=== PATIENT | female | born 1970 | race Hispanic/Latino ===

== ENCOUNTER 2020-08-24 05:10 | Emergency (ER) | payer BC ==
[~2020-08-24] VITALS: Ht 157.5 cm; Wt 88.9 kg
[2020-08-24 05:46] VITALS: BP 104/44
[2020-08-24 05:51] LABS: BASOPHILS % (AUTO) 0.7 % (0.0-5.0); HEMATOCRIT 40.3 % (36-48); MEAN CORPUSCULAR HEMOGLOBIN 28.5 pg (27.0-33.0); MEAN CORPUSCULAR HGB CONC 33.7 g/dL (32.0-36.0); MEAN CORPUSCULAR VOLUME 84.5 fL (79-99); MONOCYTES % (AUTO) 6.4 % (3.0-13.0); NEUTROPHILS % (AUTO) 70.5 % (40.0-77.0); PLATELET COUNT (AUTO) 417 K/uL (130-400); RED BLOOD CELL COUNT(AUTO) 4.77 MIL/uL (4.00-5.50); RED CELL DISTRIBUTION WIDTH 14.9 % (11.0-15.5); WHITE BLOOD COUNT (AUTO) 14.8 K/uL (4.8-10.8)
[2020-08-24 06:14] LABS: B-TYPE NATRIURETIC PEPTIDE 15 pg/mL (0-100)
[2020-08-24 06:15] LABS: INR 0.98 (0.85-1.15); PROTHROMBIN TIME 10.7 SEC (9.6-11.6)
[2020-08-24 06:16] LABS: PARTIAL THROMBOPLASTIN TIME 25.1 SEC (26.3-35.5)
[2020-08-24 06:19] LABS: APPEARANCE,URINE Clear (CLEAR); BILIRUBIN,URINE Negative (NEGATIVE); COLOR,URINE Yellow (YELLOW); GLUCOSE, URINE (UA) Negative (NEGATIVE); KETONES,URINE Trace mg/dL (NEGATIVE); LEUKOCYTE ESTERASE ,URINE Negative (NEGATIVE); NITRATE,URINE Negative (NEGATIVE); OCCULT BLOOD,URINE Trace (NEGATIVE); PROTEIN,URINE Negative (NEGATIVE)
[2020-08-24 06:22] LABS: HCG,QUAL RESULT NEGATIVE (NEGATIVE)
[2020-08-24 06:26] LABS: BACTERIA,URINE Few /HPF (None Seen); RBC,URINE 0-1 /HPF (0-1)
[2020-08-24] MEDS ORDERED: LABETALOL 20MG SYG IV ONE (06:30)
[2020-08-24] MEDS ORDERED: ONDANSETRON 4MG INJ IVP ONE (06:30)
[2020-08-24 06:32] LABS: CREATININE 0.8 mg/dL (0.5-1.5); POTASSIUM 4.4 mmol/L (3.5-5.1)
[2020-08-24 06:37] LABS: ALBUMIN 3.7 g/dL (3.5-5.0); BILIRUBIN,TOTAL 0.4 mg/dL (0.2-1.0); TOTAL PROTEIN, SERUM 7.6 g/dL (6.0-8.3)
[2020-08-24] MEDS ORDERED: MECLIZINE HCL 25 MG TABLET PO ONE (07:00)
[2020-08-24] MEDS ORDERED: 0.9%NACL 1000ML 1,000 ML IV ONE (07:00)
[2020-08-24 07:14] VITALS: BP 17/70
[2020-08-24 08:17] VITALS: BP 115/62
== END 2020-08-24 08:45 | disposition home or self-care (01) ==
LOC: EDH 05:10
DX: T67.5XXA Heat exhaustion, unspecified, initial encounter (principal); E86.0 Dehydration; R55 Syncope and collapse; I10 Essential (primary) hypertension; Z79.899 Other long term (current) drug therapy; X58.XXXA Exposure to other specified factors, initial encounter; Y93.89 Activity, other specified; Y92.89 Other specified places as the place of occurrence of the external cause; Y99.8 Other external cause status
CPT/HCPCS: 36415; 70450; 71045; 80053; 81001; 81025; 82550; 82948; 83880; 84484; 85025; 85610; 85730; 93005; 96360; 96361; 99285; J7030